=== PATIENT | female | born 1950 | race Two or more races ===

== ENCOUNTER 2025-01-01 10:53 | Outpatient (CLI) | payer OTHER | END 2025-01-01 10:58 | disposition home or self-care (01) | LOC: RAD 10:53 | PROVIDERS: ATTEND Orthopaedic Surgery | DX: M25.512 Pain in left shoulder (principal) ==

== ENCOUNTER → 2025-01-10 10:07 | Outpatient (CLI) | payer OTHER ==
[~2025-01-10] VITALS: Ht 154.9 cm; Wt 55.8 kg
[2025-01-10 10:41] VITALS: BP 149/81
[2025-01-10 10:58] LABS: BASO % 0.6 % (0.1-1.2); EOS # 0.31 (0.04-0.54); EOS % 4.7 % (0.7-7.0); LYMPH # 1.63 (1.18-3.74); LYMPH % 24.9 % (19.3-53.1); MEAN PLATELET VOLUME 11.80 fl (9.4-12.4); MONO # 0.40 (0.24-0.82); MONO % 6.1 % (4.7-12.5); NEUT # 4.14 (1.56-6.13); NEUT % 63.4 % (34.0-71.1); RED CELL DISTRIBUTION WIDTH 12.6 % (11.6-14.4)
[2025-01-10 11:13] LABS: URINE APPEARANCE Clear; URINE BILIRRUBIN Negative (NEGATIVE); URINE BLOOD Negative; URINE COLOR Yellow; URINE GLUCOSE Negative (NEGATIVE); URINE KETONE Negative (NEGATIVE); URINE LEUKOCYTE Negative; URINE NITRATE Negative; URINE PROTEIN Negative (NEGATIVE); URINE UROBILINOGEN 0.2 E.U./dl
[2025-01-10 11:14] LABS: URINE RBC 2.3 uL (0.0-20.8)
[2025-01-10 11:15] LABS: COL EPI 126 SECONDS (82-175)
[2025-01-10 11:26] LABS: URINE BACTERIA 2.3 uL (0.0-1933); URINE CAST 0.00 uL (0.0-1.40); URINE EPITHELIAL CELLS 0.7 uL (0.0-38.8); URINE WBC 0.6 uL (0.0-23.2)
[2025-01-10 11:49] LABS: INR 0.98
[2025-01-10 12:04] LABS: ALT/SGPT 35.0 U/L (12-78); AST/SGOT 21.0 U/L (15-37); BILIRUBIN TOTAL 0.35 mg/dL (0.3-1.2); BUN CREA RATIO 15.0 (7.0-25.0); CREATININE SERUM 0.85 mg/dL (0.55-1.02); GFR 65.74; GLOBULINA 3.2 G/DL (2.4-3.5); GLUCOSE FASTING 98.0 mg/dL (65-100); OSMOLALITY SERUM 285.0 MOSM/KG (275-295)
== END | disposition home or self-care (01) ==
LOC: RAD 10:07
PROVIDERS: ATTEND Orthopaedic Surgery
DX: D64.9 Anemia, unspecified (principal); E88.89 Other specified metabolic disorders; D68.8 Other specified coagulation defects; N39.0 Urinary tract infection, site not specified; Z22.322 Carrier or suspected carrier of Methicillin resistant Staphylococcus aureus; I10 Essential (primary) hypertension; Z76.89 Persons encountering health services in other specified circumstances; M25.511 Pain in right shoulder; M25.512 Pain in left shoulder

== ENCOUNTER 2025-01-20 06:00 | Day surgery (SDC) | payer OTHER ==
[2025-01-16 13:13] VITALS: BP 149/81
[~2025-01-20] VITALS: Ht 157.5 cm; Wt 55.8 kg
[~2025-01-20 06:00] MED LIST: VERAPAMIL SR240 MG PO
[2025-01-20] MEDS ORDERED: EPINEPHRINE HCL/PF 1 MG/ML AMPUL ONE (06:30)
[2025-01-20] MEDS ORDERED: LIDOCAINE HCL 1%/EPINEPHRINE 20ML VIAL IJ ONE ×2 (06:31→06:40)
[2025-01-20] MEDS ORDERED: BUPIVACAINE HCL/MPF 0.5% 30ML VIAL ONE ×2 (06:31→06:40)
[2025-01-20] MEDS ORDERED: CEFAZOLIN SODIUM 1,000 MG VIAL ONE (06:37)
[2025-01-20] MEDS ORDERED: DEXAMETHASONE SODIUM PHOSPHATE 4 MG/ML VIAL ONE (07:55)
[2025-01-20] MEDS ORDERED: ENALAPRILAT DIHYDRATE 1.25 MG/ML VIAL IV ONE (08:46)
[2025-01-20] MEDS ORDERED: SUGAMMADEX SODIUM 200 MG/2 ML VIAL IV ONE (09:45)
== END 2025-01-20 13:35 | disposition home or self-care (01) ==
LOC: CIR.AMB 06:00
PROVIDERS: ATTEND Orthopaedic Surgery
DX: M75.122 Complete rotator cuff tear or rupture of left shoulder, not specified as traumatic (principal); M75.22 Bicipital tendinitis, left shoulder; M19.012 Primary osteoarthritis, left shoulder